=== PATIENT | male | born 1930 | race Caucasian/White ===

== ENCOUNTER → 2017-07-09 | Outpatient (CLI) | payer MEDICARE ==
[2015-02-05 13:45] VITALS: BP 89/52
[~2017-07-09] MED LIST: ALBUTEROL0.09 MG/A4 IH; CARDI-OMEGA1000 MG PO; DIABETA5 MG PO; FLOMAX 0.40.4 MG/CAP PO; FLOVENT HF0.044 MG/A IH; GOOD SENSE ASPI81 M1 PO; IMDUR30 MG PO; JANUVIA 100MG100 MG PO; LASIX 20MG TABL20 MG PO; LASIX 40MG TABL40 MG PO; LEVOFLOXACIN500 MG PO; LEVOTHYROXIN0.125 MG PO; LISINOPRIL20 MG PO; METFORMIN HCL500 M1 PO; NITROSTAT0.4 MG/TAB SL; OCUVITE1 TA1 PO; PANTOPRAZOLE40 MG PO; SIMVASTATIN20 MG PO; SINGULAIR10 MG PO; TOPROL XL 25MG25 MG PO; TRIAMCINOLONE0.1% TP; TRICOR145 MG PO; TUSSIONEX PENNKI5 ML PO; ZYRTEC10 MG PO
[2017-07-09 13:00] LABS: EOS # 0.2 (0.04-0.40); EOS % 2.5 % (0.0-4.0); HEMOGLOBIN 13.7 g/dL (13.5-18.0); LYMPH# 2.1 (1.50-4.00); MEAN CELL VOLUME 92 fl (78-100); MEAN CORPUSCULAR HEMOGLOBIN 31 pg (27-31); MEAN CORPUSCULAR HGB CONC 33 g/dL (33-37); MEAN PLATELET VOLUME 9.2 fl (7.4-10.4); MONO # 0.7 (0.20-0.80); NEU # 4.1 (1.40-6.50); PLATELET COUNT 276 K/mm3 (130-400); RED BLOOD COUNT 4.47 M/mm3 (4.20-5.60); RED CELL DISTRIBUTION WIDTH 12.6 % (11.5-14.5); WHITE BLOOD COUNT 7.1 K/mm3 (4.8-10.8)
[2017-07-09 13:15] LABS: ALBUMIN 4.6 g/dL (3.5-5.0); BUN/CREATININE RATIO 23.5 (6.0-26.0); CALCIUM 9.8 mg/dL (8.4-10.2); POTASSIUM 4.4 mmol/L (3.6-5.0); TOTAL BILIRUBIN 0.5 mg/dL (0.2-1.3); TOTAL PROTEIN 8.1 g/dL (6.3-8.2)
[2017-07-09 13:58] LABS: URINE APPEARANCE CLEAR; URINE BILIRUBIN NEGATIVE (NEGATIVE); URINE BLOOD NEGATIVE (NEGATIVE); URINE COLOR YELLOW; URINE GLUCOSE NEGATIVE (NEGATIVE); URINE KETONE NEGATIVE (NEGATIVE); URINE LEUKOCYTE ESTERASE NEGATIVE (NEGATIVE); URINE NITRATE NEGATIVE (NEGATIVE); URINE PROTEIN(semi-quant) NEGATIVE (NEGATIVE); URINE UROBILINOGEN NORMAL (NORMAL); URINE WBC 0-1 /hpf (0-3)
[2017-07-09 14:03] LABS: ERYTHROCYTE SEDIMENTATION RATE 27 mm/hr (0-20)
[2017-07-09 22:58] LABS: CREATININE OTHER SOURCE 26 mg/dL (())
[2017-07-09 23:17] LABS: TESTOSTERONE 69 ng/dL (221-716)
== END ==
LOC: LAB 11:56
PROVIDERS: Internal Medicine
DX: E11.9 Type 2 diabetes mellitus without complications (principal); E78.5 Hyperlipidemia, unspecified; N52.9 Male erectile dysfunction, unspecified; I11.0 Hypertensive heart disease with heart failure; R20.2 Paresthesia of skin

== ENCOUNTER → 2018-09-20 | Outpatient (CLI) | payer MEDICARE ==
[2015-02-05 13:45] VITALS: BP 89/52
[2018-09-20 08:39] LABS: ALBUMIN 4.2 g/dL (3.4-4.8); POTASSIUM 4.9 mmol/L (3.5-5.1)
[2018-09-20 08:40] LABS: CALCIUM 10.1 mg/dL (8.3-10.5)
[2018-09-20 08:42] LABS: EOS # 0.2 (0.04-0.40); EOS % 2.9 % (0.0-4.0); HEMATOCRIT 39.7 % (42.0-52.0); LYMPH# 1.6 (1.50-4.00); MEAN CELL VOLUME 92 fl (78-100); MEAN CORPUSCULAR HEMOGLOBIN 30 pg (27-31); MEAN CORPUSCULAR HGB CONC 33 g/dL (33-37); MEAN PLATELET VOLUME 9.2 fl (7.4-10.4); MONO # 0.7 (0.20-0.80); NEU # 3.8 (1.40-6.50); PLATELET COUNT 279 K/mm3 (130-400); RED CELL DISTRIBUTION WIDTH 12.6 % (11.5-14.5); TOTAL PROTEIN 7.5 g/dL (6.2-8.1); WHITE BLOOD COUNT 6.3 K/mm3 (4.8-10.8)
[2018-09-20 08:44] LABS: TOTAL BILIRUBIN 0.5 mg/dL (0.2-1.2)
[2018-09-20 09:11] LABS: URINE APPEARANCE CLEAR; URINE BILIRUBIN NEGATIVE (NEGATIVE); URINE BLOOD NEGATIVE (NEGATIVE); URINE COLOR YELLOW; URINE GLUCOSE NEGATIVE (NEGATIVE); URINE KETONE NEGATIVE (NEGATIVE); URINE LEUKOCYTE ESTERASE NEGATIVE (NEGATIVE); URINE NITRATE NEGATIVE (NEGATIVE); URINE PROTEIN(semi-quant) TRACE mg/dL (NEGATIVE); URINE UROBILINOGEN NORMAL (NORMAL); URINE WBC 0-1 /hpf (0-3)
[2018-09-20 09:44] LABS: ERYTHROCYTE SEDIMENTATION RATE 27 mm/hr (0-20)
[2018-09-20 22:55] LABS: TESTOSTERONE 39 ng/dL (221-716)
[2018-09-20 23:00] LABS: CREATININE OTHER SOURCE 77 mg/dL (())
== END ==
LOC: LAB 08:03
PROVIDERS: Internal Medicine
DX: E11.9 Type 2 diabetes mellitus without complications (principal); I11.0 Hypertensive heart disease with heart failure; I50.9 Heart failure, unspecified; E78.5 Hyperlipidemia, unspecified; N52.9 Male erectile dysfunction, unspecified; R20.2 Paresthesia of skin

== ENCOUNTER → 2018-12-17 | Outpatient (CLI) | payer MEDICARE ==
[2015-02-05 13:45] VITALS: BP 89/52
[2018-12-17 11:14] LABS: ALBUMIN 4.1 g/dL (3.4-4.8); EOS # 0.1 (0.04-0.40); EOS % 1.5 % (0.0-4.0); HEMATOCRIT 46.8 % (42.0-52.0); HEMOGLOBIN 15.1 g/dL (13.5-18.0); LYMPH# 1.4 (1.50-4.00); MEAN CELL VOLUME 92 fl (78-100); MEAN CORPUSCULAR HEMOGLOBIN 30 pg (27-31); MEAN CORPUSCULAR HGB CONC 32 g/dL (33-37); MEAN PLATELET VOLUME 9.3 fl (7.4-10.4); MONO # 0.7 (0.20-0.80); NEU # 5.8 (1.40-6.50); PLATELET COUNT 267 K/mm3 (130-400); POTASSIUM 4.4 mmol/L (3.5-5.1); RED BLOOD COUNT 5.11 M/mm3 (4.20-5.60); RED CELL DISTRIBUTION WIDTH 13.2 % (11.5-14.5); WHITE BLOOD COUNT 8.2 K/mm3 (4.8-10.8)
[2018-12-17 11:16] LABS: CALCIUM 9.5 mg/dL (8.3-10.5)
[2018-12-17 11:17] LABS: TOTAL PROTEIN 7.6 g/dL (6.2-8.1)
[2018-12-17 11:19] LABS: TOTAL BILIRUBIN 0.4 mg/dL (0.2-1.2)
== END ==
LOC: LAB 10:34
PROVIDERS: Internal Medicine
DX: E11.9 Type 2 diabetes mellitus without complications (principal)

== ENCOUNTER 2019-03-02 15:03 | Emergency (ER) | payer MEDICARE ==
[2019-03-02 15:46] LABS: EOS # 0.1 (0.04-0.40); EOS % 0.7 % (0.0-4.0); HEMATOCRIT 50.4 % (42.0-52.0); HEMOGLOBIN 16.3 g/dL (13.5-18.0); LYMPH# 1.4 (1.50-4.00); MEAN CELL VOLUME 90 fl (78-100); MEAN CORPUSCULAR HEMOGLOBIN 29 pg (27-31); MEAN CORPUSCULAR HGB CONC 32 g/dL (33-37); MEAN PLATELET VOLUME 9.3 fl (7.4-10.4); MONO # 0.9 (0.20-0.80); NEU # 5.2 (1.40-6.50); PLATELET COUNT 256 K/mm3 (130-400); RED BLOOD COUNT 5.58 M/mm3 (4.20-5.60); RED CELL DISTRIBUTION WIDTH 14.5 % (11.5-14.5); WHITE BLOOD COUNT 7.6 K/mm3 (4.8-10.8)
[2019-03-02 15:51] LABS: ALBUMIN 4.5 g/dL (3.4-4.8); POTASSIUM 4.5 mmol/L (3.5-5.1)
[2019-03-02 15:52] LABS: CALCIUM 8.7 mg/dL (8.3-10.5)
[2019-03-02 15:54] LABS: TOTAL PROTEIN 7.8 g/dL (6.2-8.1)
[2019-03-02 15:55] LABS: TOTAL BILIRUBIN 0.5 mg/dL (0.2-1.2)
[2019-03-02] MEDS ORDERED: LOPRESSOR 550 MG/TAB PO (16:14)
[2019-03-02] MEDS ORDERED: CLOPIDOGREL75 M2 PO (16:14)
[2019-03-02] MEDS ORDERED: CALCIUM 600600 M2 PO (16:15)
[2019-03-02] MEDS ORDERED: ALDACTONE 25MG25 MG PO (16:15)
[2019-03-02] MEDS ORDERED: POTASSIUM CHLO20 ME4 PO (16:16)
[2019-03-02] MEDS ORDERED: ATORVASTATIN CA20 MG PO (16:17)
[2019-03-02 18:03] LABS: URINE APPEARANCE CLEAR; URINE BILIRUBIN NEGATIVE (NEGATIVE); URINE BLOOD NEGATIVE (NEGATIVE); URINE COLOR YELLOW; URINE GLUCOSE NEGATIVE (NEGATIVE); URINE KETONE NEGATIVE (NEGATIVE); URINE LEUKOCYTE ESTERASE NEGATIVE (NEGATIVE); URINE NITRATE NEGATIVE (NEGATIVE); URINE PROTEIN(semi-quant) NEGATIVE (NEGATIVE); URINE UROBILINOGEN NORMAL (NORMAL); URINE WBC 0-1 /hpf (0-3)
[2019-03-02 19:18] VITALS: BP 121/53
== END 2019-03-02 19:19 | disposition home or self-care (01) ==
LOC: ED 15:03
PROVIDERS: Family Medicine
DX: A08.4 Viral intestinal infection, unspecified (principal); E11.22 Type 2 diabetes mellitus with diabetic chronic kidney disease; N18.9 Chronic kidney disease, unspecified; I25.10 Atherosclerotic heart disease of native coronary artery without angina pectoris; I50.9 Heart failure, unspecified; K21.9 Gastro-esophageal reflux disease without esophagitis; Z79.02 Long term (current) use of antithrombotics/antiplatelets; Z79.84 Long term (current) use of oral hypoglycemic drugs; Z79.82 Long term (current) use of aspirin; Z95.0 Presence of cardiac pacemaker; Z90.49 Acquired absence of other specified parts of digestive tract
CPT/HCPCS: J7030

== ENCOUNTER → 2019-05-12 | Outpatient (CLI) | payer MEDICARE ==
[~2019-05-12] MED LIST changes: +ALDACTONE 25MG25 MG PO; +ATORVASTATIN CA20 MG PO; +CALCIUM 600600 M2 PO; +CLOPIDOGREL75 M2 PO; +LOPRESSOR 550 MG/TAB PO; +POTASSIUM CHLO20 ME4 PO
[2019-05-12 10:19] LABS: EOS # 0.1 (0.04-0.40); EOS % 1.3 % (0.0-4.0); HEMATOCRIT 50.6 % (42.0-52.0); HEMOGLOBIN 16.4 g/dL (13.5-18.0); LYMPH# 1.5 (1.50-4.00); MEAN CELL VOLUME 92 fl (78-100); MEAN CORPUSCULAR HEMOGLOBIN 30 pg (27-31); MEAN CORPUSCULAR HGB CONC 32 g/dL (33-37); MEAN PLATELET VOLUME 9.1 fl (7.4-10.4); MONO # 0.8 (0.20-0.80); NEU # 5.5 (1.40-6.50); PLATELET COUNT 251 K/mm3 (130-400); RED BLOOD COUNT 5.51 M/mm3 (4.20-5.60); WHITE BLOOD COUNT 7.9 K/mm3 (4.8-10.8)
[2019-05-12 10:22] LABS: POTASSIUM 4.8 mmol/L (3.5-5.1)
[2019-05-12 10:23] LABS: ALBUMIN 4.4 g/dL (3.4-4.8)
[2019-05-12 10:24] LABS: CALCIUM 10.1 mg/dL (8.3-10.5)
[2019-05-12 10:25] LABS: TOTAL PROTEIN 7.4 g/dL (6.2-8.1)
[2019-05-12 10:27] LABS: TOTAL BILIRUBIN 0.5 mg/dL (0.2-1.2)
[2019-05-12 10:32] LABS: MAGNESIUM 2.05 mg/dL (1.60-2.60)
[2019-05-12 11:21] LABS: ERYTHROCYTE SEDIMENTATION RATE 3 mm/hr (0-20)
== END ==
LOC: LAB 10:02
PROVIDERS: Internal Medicine
DX: Z12.5 Encounter for screening for malignant neoplasm of prostate (principal); I10 Essential (primary) hypertension; E78.5 Hyperlipidemia, unspecified; E11.9 Type 2 diabetes mellitus without complications

== ENCOUNTER → 2019-09-09 | Outpatient (CLI) | payer MEDICARE ==
[2019-09-09 14:50] LABS: EOS # 0.1 (0.04-0.40); EOS % 1.4 % (0.0-4.0); HEMATOCRIT 50.8 % (42.0-52.0); HEMOGLOBIN 16.9 g/dL (13.5-18.0); LYMPH# 1.7 (1.50-4.00); MEAN CELL VOLUME 93 fl (78-100); MEAN CORPUSCULAR HEMOGLOBIN 31 pg (27-31); MEAN CORPUSCULAR HGB CONC 33 g/dL (33-37); MEAN PLATELET VOLUME 9.7 fl (7.4-10.4); NEU # 6.4 (1.40-6.50); PLATELET COUNT 236 K/mm3 (130-400); RED BLOOD COUNT 5.48 M/mm3 (4.20-5.60); RED CELL DISTRIBUTION WIDTH 13.8 % (11.5-14.5); WHITE BLOOD COUNT 9.3 K/mm3 (4.8-10.8)
[2019-09-09 14:55] LABS: ALBUMIN 4.1 g/dL (3.4-4.8)
[2019-09-09 14:56] LABS: POTASSIUM 4.5 mmol/L (3.5-5.1)
[2019-09-09 14:57] LABS: CALCIUM 9.3 mg/dL (8.3-10.5)
[2019-09-09 14:58] LABS: TOTAL PROTEIN 7.6 g/dL (6.2-8.1)
[2019-09-09 15:00] LABS: TOTAL BILIRUBIN 0.5 mg/dL (0.2-1.2)
[2019-09-09 15:05] LABS: MAGNESIUM 1.92 mg/dL (1.60-2.60)
== END ==
LOC: LAB 14:07
PROVIDERS: Internal Medicine
DX: I11.0 Hypertensive heart disease with heart failure (principal); E11.9 Type 2 diabetes mellitus without complications; K90.9 Intestinal malabsorption, unspecified; R20.2 Paresthesia of skin

== ENCOUNTER → 2019-10-15 | Outpatient (CLI) | payer MEDICARE | LOC: LAB 07:48 | DX: E78.00 Pure hypercholesterolemia, unspecified (principal); Z79.899 Other long term (current) drug therapy ==

== ENCOUNTER → 2019-10-20 | Outpatient (CLI) | payer MEDICARE ==
[2019-10-21 05:27] LABS: ALBUMIN 4.2 g/dL (3.4-4.8)
[2019-10-21 05:28] LABS: POTASSIUM 4.6 mmol/L (3.5-5.1)
[2019-10-21 05:30] LABS: TOTAL PROTEIN 7.4 g/dL (6.2-8.1)
[2019-10-21 05:32] LABS: TOTAL BILIRUBIN 0.5 mg/dL (0.2-1.2)
== END ==
LOC: RAD 14:12
PROVIDERS: Internal Medicine
DX: I11.0 Hypertensive heart disease with heart failure (principal); I50.9 Heart failure, unspecified; E11.9 Type 2 diabetes mellitus without complications